=== PATIENT | female | born 1990 ===

== ENCOUNTER 2020-08-17 21:37 | Inpatient (IN) ==
[2020-08-17] MEDS ORDERED: hydrALAZINE 20 MG/1 ML VIAL IV ONE (22:10)
[2020-08-17] MEDS: LACTATED RINGERS 1,000 ML IV SCH (22:29)
[2020-08-17 22:56] LABS: Bilirubin,Urine Negative (Negative); Blood, Urine Negative (Negative); Glucose,Urine (UA) Negative (Negative); Hyaline Casts,Urine 7 /LPF (0-3); Ketones,Urine 20 mg/dL (Negative); Mucus,Urine Occasional /LPF (Occasional); Nitrite,Urine Negative (Negative); Protein,Urine 100 MG/DL; RBC,Urine 3 /HPF (0-4); Squamous Epithelial Cell,Urine Occasional /HPF (0-10); Urine Appearance Slightly Hazy (Clear); Urine Color Yellow (Yellow); Urine Specific Gravity 1.015 (1.001-1.035); Urine Urobilinogen < 2.0 EU/DL (0.2-1.0); WBC,Urine 2 /HPF (0-6)
[2020-08-17] MEDS ORDERED: LABETALOL 100 MG TABLET PO STA (22:58)
[2020-08-17 23:29] LABS: Basophils % 0.4 % (0.0-0.8); Eosinophils % 0.3 % (0.00-10.9); Hematocrit 32.9 VOL% (35.7-47.0); Hemoglobin 10.8 GM/DL (12.0-16.0); Lymphocytes # 1.8 10*3/uL (1.4-4.0); Lymphocytes % 17.3 % (21.3-54.2); Mean Corpuscular HGB Conc 32.8 GM/DL (32-36); Mean Corpuscular Volume 75.1 FL (87-102); Mean Platelet Volume 11.8 FL (9.6-12.0); Platelet Count 192 T/CUMM (130-400); Red Blood Count 4.38 MC/CUMM (3.8-5.5); Red Cell Distribution Width 14.7 % (9.3-17.3); White Blood Count 10.4 T/CUMM (4-12)
[2020-08-17 23:43] LABS: INR 0.9; PT Patient Result 9.8 SECS (9.8-11.9); Partial Thromboplastin Time 29.6 SECS (23.9-33.8)
[2020-08-18 00:46] LABS: Alanine Aminotransferase 11 U/L (13-56); Albumin 2.4 G/DL (3.4-5.0); Alkaline Phosphatase 143 U/L (45-117); Aspartate Amino Transferase 15 U/L (0-37); Bilirubin,Total < 0.39 MG/DL (0.2-1.0); Blood Urea Nitrogen 8 MG/DL (7-18); Calcium 8.5 MG/DL (8.5-10.1); Estimated Glom Filtration Rate 133 ML/MIN; Glucose 71 MG/DL (74-106); Osmolality,Calculated 272.5 MOS/KG (273-304); Total Protein 6.2 G/DL (6.4-8.3)
[2020-08-18] MEDS ORDERED: ACETAMINOPHEN 500 MG TABLET PO PRN (07:32)
[2020-08-18] MEDS ORDERED: PROMETHAZINE 25 MG/1 ML VIAL IM ONE (07:52)
[2020-08-18] MEDS ORDERED: ACETAMINOPHEN/CODEINE 300-30 MG TABLET PO PRN (07:52)
[2020-08-18] MEDS: LACTATED RINGERS 1,000 ML IV SCH (08:02)
[2020-08-18] MEDS: LABETALOL 100 MG TABLET PO SCH ×2 (09:45→21:08)
[2020-08-18 23:13] LABS: Total Protein 24 Hr Ur Result 1076 MG/24HR (0-149.1); Total Volume,Urine 1110 ML (400-2000)
[2020-08-18 23:21] LABS: Creatinine Clearance Urine 139.81 ML/MIN (70-115)
[2020-08-19] MEDS: LABETALOL 100 MG TABLET PO SCH ×2 (07:30→12:31)
[2020-08-19] MEDS ORDERED: LABETALOL 100 MG TABLET PO SCH (12:30)
[2020-08-19] MEDS: BETAMETH SODIUM PHOS/ACETATE 30 MG/5 ML VIAL IM SCH (12:31)
[2020-08-19] MEDS: LABETALOL 200 MG TABLET PO SCH (20:32)
[2020-08-20] MEDS: BETAMETH SODIUM PHOS/ACETATE 30 MG/5 ML VIAL IM SCH (00:40)
[2020-08-20] MEDS: LABETALOL 100 MG TABLET PO SCH (00:46)
[2020-08-20] MEDS: LABETALOL 200 MG TABLET PO SCH ×2 (07:48→18:28)
[2020-08-20] MEDS ORDERED: INFLUENZA VIRUS VACCINE 0.5 ML SYRINGE IM ONE (10:56)
[2020-08-20 15:44] VITALS: BP 149/76
== END 2020-08-20 18:35 | disposition home or self-care (01) | DRG 832 ==
LOC: N.LDOUT 21:37 → N.LD 21:38 → N.OB 08-18 16:02
PROVIDERS: ADMIT Obstetrics & Gynecology; ATTEND Obstetrics & Gynecology

== ENCOUNTER 2020-08-22 15:05 | Inpatient (IN) ==
[2020-08-22] MEDS ORDERED: CITRIC ACID/SODIUM CITRATE 30 ML UDCUP PO ONE (15:07)
[2020-08-22] MEDS ORDERED: FAMOTIDINE 20 MG/2 ML VIAL IV ONE (15:07)
[2020-08-22] MEDS ORDERED: ceFAZolin 2,000 MG in PREMIX 1 EACH IV ONE (15:07)
[2020-08-22] MEDS ORDERED: LACTATED RINGERS 1,000 ML IV ONE (15:10)
[2020-08-22] MEDS ORDERED: MAGNESIUM SULF RIDER 4 GM in PREMIX 1 EACH IV ONE (15:20)
[2020-08-22] MEDS: LACTATED RINGERS 1,000 ML IV SCH ×2 (15:25→23:30)
[2020-08-22] MEDS ORDERED: hydrALAZINE 20 MG/1 ML VIAL IV ONE (15:26)
[2020-08-22] MEDS ORDERED: LABETALOL 100 MG/20 ML VIAL IV ONE (15:26)
[2020-08-22 15:27] LABS: Basophils % 0.4 % (0.0-0.8); Hematocrit 32.8 VOL% (35.7-47.0); Hemoglobin 10.5 GM/DL (12.0-16.0); Immature Granulocytes % 5.1 %; Immature Granulocytes Absolute 0.57 #; Lymphocytes # 1.7 10*3/uL (1.4-4.0); Lymphocytes % 15.2 % (21.3-54.2); Mean Corpuscular Volume 76.8 FL (87-102); Monocytes % 10.2 % (1.7-12.7); NRBC # 0.07 10*3/uL; Neutrophils % 69.1 % (38.7-73.9); Platelet Count 193 T/CUMM (130-400); Red Blood Count 4.27 MC/CUMM (3.8-5.5); Red Cell Distribution Width 15.8 % (9.3-17.3); White Blood Count 11.2 T/CUMM (4-12)
[2020-08-22] MEDS: LABETALOL 100 MG/20 ML VIAL IV PRN (15:31)
[2020-08-22 15:42] LABS: INR 0.9; PT Patient Result 9.8 SECS (9.8-11.9); Partial Thromboplastin Time 25.7 SECS (23.9-33.8)
[2020-08-22 15:42] LABS: Bacteria,Urine Occasional /HPF (Few); Bilirubin,Urine Negative (Negative); Blood, Urine Small mg/dL (Negative); Glucose,Urine (UA) Negative (Negative); Ketones,Urine Negative (Negative); Nitrite,Urine Negative (Negative); Protein,Urine >=500 MG/DL; RBC,Urine <1 /HPF (0-4); Squamous Epithelial Cell,Urine Occasional /HPF (0-10); Urine Appearance CLEAR (Clear); Urine Color Straw (Yellow); Urine Specific Gravity 1.004 (1.001-1.035); Urine Urobilinogen < 2.0 EU/DL (0.2-1.0); WBC,Urine <1 /HPF (0-6)
[2020-08-22] MEDS: MAGNESIUM SULF DRIP 40 GM/1,000 ML ML IV SCH (15:45)
[2020-08-22 15:53] LABS: Alanine Aminotransferase 13 U/L (13-56); Albumin 2.5 G/DL (3.4-5.0); Alkaline Phosphatase 144 U/L (45-117); Aspartate Amino Transferase 21 U/L (0-37); Bilirubin,Direct < 0.100 MG/DL (0.0-0.20); Blood Urea Nitrogen 10 MG/DL (7-18); Estimated Glom Filtration Rate 137 ML/MIN; Glucose 69 MG/DL (74-106); Osmolality,Calculated 273.5 MOS/KG (273-304); Total Protein 6.2 G/DL (6.4-8.3); Uric Acid 6.5 MG/DL (2.6-6.0)
[2020-08-22] MEDS ORDERED: ONDANSETRON 4 MG/2 ML VIAL ONE (16:03)
[2020-08-22] MEDS ORDERED: BUPIVACAINE SPINAL 0.75% 2 ML AMP SPINAL ONE (16:03)
[2020-08-22] MEDS ORDERED: miSOPROStoL 200 MCG TABLET ONE (16:04)
[2020-08-22] MEDS ORDERED: fentaNYL 100 MCG/2 ML VIAL ONE (16:04)
[2020-08-22] MEDS ORDERED: MORPHINE 10 MG/10 ML VIAL ONE (16:04)
[2020-08-22] MEDS ORDERED: TRANEXAMIC ACID 1,000 MG/10 ML VIAL ONE (16:04)
[2020-08-22] MEDS ORDERED: OXYTOCIN/LR 20 UNIT/1,000 ML BAG IV ONE ×2 (16:04→20:31)
[2020-08-22] MEDS ORDERED: METHYLERGONOVINE 0.2 MG/1 ML AMP ONE (16:05)
[2020-08-22] MEDS ORDERED: CARBOPROST TROMETHAMINE 250 MCG/ML AMP IM ONE (16:05)
[2020-08-22 16:25] LABS: Anisocytosis Slight; Band Neutrophils 3 % (0-10); Lymphocytes 23 % (20-55); Platelet Estimate Adequate; Segmented Neutrophils 63 % (50-85); Total Cells Counted 100
[2020-08-22 16:47] LABS: Cord Venous Blood HCO3 21.7 MMOL/L; Cord Venous Blood PCO2 49.2 MMHG; Cord Venous Blood PO2 23.7
[2020-08-22] MEDS ORDERED: KETOROLAC 30 MG/1 ML VIAL IM ONE (17:23)
[2020-08-22] MEDS ORDERED: HYDROmorphone 2 MG/1 ML VIAL IV PRN (17:23)
[2020-08-22] MEDS ORDERED: hydrOXYzine HCL 25 MG/1 ML VIAL IM PRN (17:23)
[2020-08-22] MEDS ORDERED: diphenhydrAMINE 50 MG/1 ML VIAL IV PRN (17:23)
[2020-08-22] MEDS: ONDANSETRON 4 MG/2 ML VIAL IV PRN (19:00)
[2020-08-22] MEDS ORDERED: BISACODYL 10 MG SUPP RECTAL PRN (20:48)
[2020-08-22] MEDS ORDERED: MAGNESIUM HYDROXIDE SUSP 30 ML UDCUP PO PRN (20:48)
[2020-08-22] MEDS: LABETALOL 200 MG TABLET PO SCH ×2 (21:34→23:31)
[2020-08-22] MEDS: DOCUSATE SODIUM 100 MG CAPSULE PO SCH (21:34)
[2020-08-22] MEDS ORDERED: PROMETHAZINE 25 MG/1 ML VIAL IM PRN (22:11)
[2020-08-22] MEDS: KETOROLAC 30 MG/1 ML VIAL IV SCH (23:32)
[2020-08-22] MEDS: ceFAZolin 1,000 MG in SYRINGE 1 EACH IV SCH (23:35)
[2020-08-23] MEDS: ONDANSETRON 4 MG/2 ML VIAL IV PRN ×2 (02:08→05:47)
[2020-08-23] MEDS: LABETALOL 100 MG/20 ML VIAL IV PRN (02:09)
[2020-08-23 05:43] LABS: Basophils % 0.2 % (0.0-0.8); Eosinophils % 0.1 % (0.00-10.9); Hematocrit 25.4 VOL% (35.7-47.0); Hemoglobin 8.1 GM/DL (12.0-16.0); Immature Granulocytes % 1.9 %; Immature Granulocytes Absolute 0.25 #; Lymphocytes # 1.7 10*3/uL (1.4-4.0); Lymphocytes % 13.3 % (21.3-54.2); Mean Corpuscular HGB Conc 31.9 GM/DL (32-36); Mean Corpuscular Volume 77.2 FL (87-102); Mean Platelet Volume 11.5 FL (9.6-12.0); Monocytes % 8.9 % (1.7-12.7); NRBC # 0.03 10*3/uL; Neutrophils % 75.6 % (38.7-73.9); Platelet Count 155 T/CUMM (130-400); Red Blood Count 3.29 MC/CUMM (3.8-5.5); Red Cell Distribution Width 15.5 % (9.3-17.3); White Blood Count 12.9 T/CUMM (4-12)
[2020-08-23] MEDS: KETOROLAC 30 MG/1 ML VIAL IV SCH ×2 (05:44→12:24)
[2020-08-23] MEDS: LABETALOL 200 MG TABLET PO SCH ×2 (08:33→21:17)
[2020-08-23] MEDS: DOCUSATE SODIUM 100 MG CAPSULE PO SCH ×2 (08:33→21:17)
[2020-08-23] MEDS: ceFAZolin 1,000 MG in SYRINGE 1 EACH IV SCH (08:36)
[2020-08-23] MEDS: LACTATED RINGERS 1,000 ML IV SCH (09:25)
[2020-08-23] MEDS: MAGNESIUM SULF DRIP 40 GM/1,000 ML ML IV SCH (12:24)
[2020-08-23] MEDS: IBUPROFEN 800 MG TABLET PO PRN (16:27)
[2020-08-23] MEDS ORDERED: miSOPROStoL 200 MCG TABLET ONE (21:28)
[2020-08-23] MEDS ORDERED: OXYTOCIN/LR 20 UNIT/1,000 ML BAG IV ONE (21:28)
[2020-08-23] MEDS ORDERED: METHYLERGONOVINE 0.2 MG/1 ML AMP ONE (21:29)
[2020-08-23] MEDS ORDERED: CARBOPROST TROMETHAMINE 250 MCG/ML AMP IM ONE (21:29)
[2020-08-24] MEDS: IBUPROFEN 800 MG TABLET PO PRN ×2 (00:29→17:33)
[2020-08-24] MEDS: oxyCODONE/ACETAMINOPHEN 5-325 MG TABLET PO PRN ×2 (00:30→23:38)
[2020-08-24 05:55] LABS: Basophils % 0.2 % (0.0-0.8); Eosinophils # 0.1 10*3/uL (0.0-0.87); Eosinophils % 0.7 % (0.00-10.9); Hematocrit 21.1 VOL% (35.7-47.0); Hemoglobin 6.7 GM/DL (12.0-16.0); Immature Granulocytes % 2.5 %; Immature Granulocytes Absolute 0.27 #; Lymphocytes # 2.2 10*3/uL (1.4-4.0); Mean Corpuscular HGB Conc 31.8 GM/DL (32-36); Mean Platelet Volume 11.6 FL (9.6-12.0); Monocytes % 9.7 % (1.7-12.7); NRBC # 0.04 10*3/uL; Neutrophils % 66.9 % (38.7-73.9); Platelet Count 158 T/CUMM (130-400); Red Blood Count 2.74 MC/CUMM (3.8-5.5); Red Cell Distribution Width 15.8 % (9.3-17.3); White Blood Count 10.8 T/CUMM (4-12)
[2020-08-24] MEDS: LABETALOL 200 MG TABLET PO SCH ×2 (10:04→21:28)
[2020-08-24] MEDS: DOCUSATE SODIUM 100 MG CAPSULE PO SCH ×2 (10:04→21:28)
[2020-08-24] MEDS ORDERED: SODIUM CHLORIDE 0.9% 1,000 ML IV PRN (11:41)
[2020-08-24] MEDS ORDERED: INFLUENZA VIRUS VACCINE 0.5 ML SYRINGE IM ONE (15:37)
[2020-08-25 05:18] LABS: Hematocrit 25.4 VOL% (35.7-47.0)
[2020-08-25 05:33] LABS: Hemoglobin 8.2 GM/DL (12.0-16.0)
[2020-08-25] MEDS: LABETALOL 200 MG TABLET PO SCH (08:10)
[2020-08-25] MEDS: DOCUSATE SODIUM 100 MG CAPSULE PO SCH (08:10)
[2020-08-25] MEDS: IBUPROFEN 800 MG TABLET PO PRN (08:16)
[2020-08-25 11:00] VITALS: BP 145/90
[2020-08-25] MEDS ORDERED: DIPH/TET/ACEL PERT BOOSTER VACCINE 0.5 ML VIAL IM ONE (13:49)
[2020-08-25] MEDS ORDERED: INFLUENZA VIRUS VACCINE 0.5 ML SYRINGE IM ONE (13:49)
== END 2020-08-25 14:45 | disposition home or self-care (01) | DRG 787 ==
LOC: N.LDOUT 15:05 → N.LD 15:06 → N.OB 08-24 08:45
PROVIDERS: ADMIT Obstetrics & Gynecology; ATTEND Obstetrics & Gynecology
PROC: LDCSECT (ICD-10-PCS; 2020-08-22 16:00)